=== PATIENT | male | born 1995 | race African-American/Black ===

== ENCOUNTER 2017-03-07 17:55 | Inpatient (IN) | payer OTHER ==
[~2017-03-07] VITALS: Ht 160 cm; Wt 62.1 kg
--- NOTE | ~2017-03-07 | HC ---
[facility] [place] [address] CONSULTATION Name: PURA CLARK Room #: 313-P [facility] IN M.R.#: [id number] Admission: 03/07/17 Attend Phys: Ricardo Shane MD Discharge: 03/18/17 Date of : 94 Report #: [id number] THIS REPORT FOR: //name// CC: BERTA physician/PCP Ricardo Banks The patient was admitted to the hospital on March 08 and discharged from the hospital on March 18. HISTORY OF PRESENT ILLNESS: The patient is a 21-year-old man, who came to the hospital with bilateral lower extremity numbness and inability to walk. The patient reported bilateral paralysis. The patient has been evaluated at [facility], as well as [facility] in the past. Reportedly, the symptoms go away a few days later. The patient has some injury when he played football in the school. Please refer to the admission H and P for details. HOSPITALIZATION COURSE: The patient was hospitalized at [facility]. Neurologist was consulted. The patient had extensive evaluation. He had MRI of the brain, as well as MRI of the spine. This was completely normal, and no abnormalities was detected. Conversion disorder was suspected, so Psychiatrist was consulted. Psychiatrist evaluated the patient about a week ago, and recommended further workup to rule out other etiologies. The patient had lumbar puncture yesterday, which was also unremarkable. Neurology strongly recommended re-consulting psychiatrist. In the meantime, the patient was seen and evaluated by inpatient rehabilitation, where patient will be transferred today. Of note, the patient also had urinary retention on admission, that was completely resolved. The patient's vital signs and blood work has remained unremarkable. Currently, the patient is medically stable to be transferred to the rehabilitation. ASSESSMENT AND PLAN: 1. Bilateral lumbar extremity weakness and numbness, conversion disorder is strongly suspected, as his evaluation was completely negative including MRI of the brain, MRI of the spine and LP. Reconsulting psychiatrist is recommended. 2. Urinary retention, resolved. DISCHARGE MEDICATIONS: Tylenol 650 mg every 6 hours as needed. [facility] [address] [place] [address] CONSULTATION Name: PURA CLARK Room #: 313-P [facility]#: [id number] Admission: 03/07/17 Attend Phys: Ricardo Shane MD Discharge: 03/18/17 Date of : 94 Report #: [id number] DISPOSITION: The patient is discharged to the inpatient rehabilitation. <ELECTRONICALLY SIGNED> By: Jad Phillips MD 03/18/17 1534 1244 1316 Jad Phillips MD /nt
--- NOTE | ~2017-03-07 | HC ---
[facility] [place] [address] CONSULTATION Name: PURA CLARK Room #: 313-P [facility] IN [facility].#: [id number] Admission: 03/07/17 Attend Phys: Ricardo Shane MD Discharge: Date of : 94 Report #: [id number] THIS REPORT FOR: //name// CC: [facility] physician/PCP Ricardo Banks DATE OF SERVICE: 03/09/2017 HISTORY OF PRESENT ILLNESS: The patient is a 21-year-old male who was admitted with episodic paraplegia. He has had at least 4 episodes. Apparently, he had pmumww-wu-pxdwap injury in 2012 and has had multiple episodes lasting for couple of days to a week when he will have the paraplegia, which will then resolve with therapy. 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 At this time, he had a similar event and also was noted to have presumed urinary retention and was catheterized in the emergency department. He has been seen by Neurology. MRI of the brain and spine were reviewed by the radiologist and Neurology and noted to be normal. Neurology has reviewed old records from [facility]. There is a suspicion for conversion disorder. The patient is now voiding, but does not have any movement of his lower extremities and has decreased sensation. We are seeing him in rehabilitation medicine consultation. PAST MEDICAL HISTORY: Well delineated above. Prior medical history also includes heel surgery and asthma. MEDICATIONS: Please see the full medication listing. ALLERGIES: No known drug allergies. HABITS: No history of tobacco or alcohol abuse. REVIEW OF SYSTEMS: No current complaints of chest pain, shortness of breath, abdominal discomfort. PHYSICAL EXAMINATION: GENERAL: A 21-year-old -J[place]ican male in no obvious distress. VITAL SIGNS: Last recorded temperature 97.4, pulse 52, respirations 18, blood pressure 108/54. NEUROLOGIC: He is alert, pleasant, oriented. He is a good historian. Facies are symmetric. He has full range of motion of both upper extremities with external strength. He is of slender build. Lower extremities, no volitional movement from the waist distal. DTRs were 2 at the knees, 1 at the ankles, no clonus. Sensation appeared decreased, bilateral lower extremities. Proprioception was tested and was absent in bilateral large toes. Functionally, he is standby assist and sit to supine and does have good sitting balance. [address] [address] CONSULTATION Name: EDUARDOPURA Room #: 313-P [facility] IN [facility]#: [id number] Admission: 03/07/17 Attend Phys: Ricardo Shane MD Discharge: Date of : 94 Report #: [id number] ASSESSMENT: A 21-year-old -Jamaican male with the following problem list: 1. Bilateral lower extremity paralysis. 2. Past history of episodic paraplegia. 3. Urinary retention initially, which has now resolved. 4. Family history of multiple sclerosis. PLAN: Thorough neurology documentation is well delineated. Therapy evaluations are underway. Insurance will need to be checked regarding rehab therapy options. We will be glad to follow along with you. <ELECTRONICALLY SIGNED> By: Oscar Hendrix MD 03/17/17 1350 1132 1214 Oscar Hendrix MD /nt
--- NOTE | ~2017-03-07 | EKG ---
[address] [place] [address] ELECTROCARDIOGRAM REPORT Name: DARIANA CLARKSHI Carrero Room #: 315-P ADM IN M.R.#: [id number] Admission: 03/07/17 Attend Phys: Ricardo Shane MD Discharge: Date of : 94 Report #: [id number] THIS REPORT FOR: //name// [facility] Test Date: 2017-03-12 Test Time: 13:21:38 Pat Name: PURA CLARK Department: Room: 315 P Gender: M Perianesthesia Rn: jaxon : 1995 Requested By: Devon Barone Order Number: [id number] MD: Iván Darling Measurements Intervals Nelson Rate: 54 P: 59 MO: 165 QRS: 62 QRSD: 97 T: 32 QT: 413 QTc: 392 Interpretive Statements Sinus rhythm Probable left ventricular hypertrophy ST elev, probable normal early repol pattern No previous ECG available for comparison Electronically Signed On 03-12-2017 14:19:19 CDT by Iván Darling [email or web address] <ELECTRONICALLY SIGNED> By: Iván Darling MD 03/12/17 1419 1321 1321 Iván Darling MD /RONDA
--- NOTE | ~2017-03-07 | HC ---
[facility] [place] [address] CONSULTATION Name: PURA CLARK Room #: 315-P ADM IN ..#: [id number] Admission: 03/07/17 Attend Phys: Ricardo Shane MD Discharge: Date of : 94 Report #: [id number] THIS REPORT FOR: //name// CC: [facility]ERT[facility] physician/PCP Ricardo Banks DATE OF SERVICE: 03/07/2017 HISTORY OF PRESENT ILLNESS: This is a 21-year-old male patient who was seen by me with pretty unusual history. He indicates that he had his first episode of paralysis of the lower extremities when he was 17. He indicated that the paralysis lasted about 2 weeks, but he was left with some residual paralysis. He did not have any bladder disturbances associated with that. After that, history becomes somewhat vague. Initially, he said he was admitted second time at [facility]. They told him to go to higher level of care and subsequently he went to [facility] because of that advice. Then, he changes his history and he indicated that he was admitted to [facility] between his second admission and his last admission to [facility], which was about 2 months ago. All the episodes were similar. He becomes completely paralyzed in the lower extremity. His upper extremity is not affected. At this time, he said he has not passed urine since yesterday, but previously he has not had any urinary problem before. He indicates he did have an MRI of the brain to look for MS and the best he knows he did not have any evidence of MS. He had no history of trauma, although he had some past history in that regard, which also he keeps changing. 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 He indicates that he can work there, but sometime gets tired and then he is allowed to sit. He denies any history of anxiety and depression, but I have no previous records in this patient and I have asked the emergency room physician to get those records. I carried out 14-point review of systems; except for these symptoms, it would appear it is unremarkable. PAST MEDICAL HISTORY: Positive for this kind of episode at least 4 times. FAMILY HISTORY: Negative for any hereditary paralysis. SOCIAL HISTORY: He denies the use of alcohol, tobacco, or drugs to me. PHYSICAL EXAMINATION: Indicate he is alert, he is responsive. His speech, concentration, fund of knowledge and memory is at his baseline. Cranial nerve examination 2-12 is unremarkable. He has normal strength, sensation, reflexes in both upper extremities. In the lower extremities, he says he cannot move at all. He indicates he has no position sense and no pinprick until about T 12 area. After that, sensation is completely intact. His reflexes are well [facility] [address] [place] [address] CONSULTATION Name: PURA CLARK Alise Room #: 315-P [facility] IN .R.#: [id number] Admission: 03/07/17 Attend Phys: Ricardo Shane MD Discharge: Date of : 94 Report #: [id number] elicited on both sides. It may be somewhat on the hyper side, but his plantars are mute on both sides. He does not have upgoing plantar and in fact during plantar examination, he does not move. There is no cardiac arrhythmia. His pulses are well felt in the lower extremities. He is reasonably well-developed individual who does not have any dysmorphic features of eyes, ears and face. He has no respiratory difficulties. Blood pressure is 115/79, respirations 16, pulse is 64, temperature is 98.7. LABORATORY DATA: His white count is 5.2. He had a stat MRI of the thoracic and lumbar spine done before I saw him and that was unremarkable. IMPRESSION: This is a complicated case and the diagnosis is not clear in this patient. I do not know whether this is an organic diagnosis or a functional diagnosis. We need all the records from the previous hospitalizations to review and then decide about the further management in this patient. It looks like he has been seen at multiple facilities and has been recommended to go [facility]. I discussed that aspect very frankly with him. I told him the limitation of our hospital and if at [facility] and [facility] he has been told to go to the higher level of care like [facility], then I told him very clearly this is not the hospital he should come in. I discussed the reason for that that we do not have neurological sophistication or neurosurgical sophistications even close to [facility], not to mention [facility] and [facility]. I discussed those limitations in great detail with this patient and recommended some other hospital which can provide him more sophisticated neuroscience care. However, for some reason, it looks like he wanted to get admitted here. If that is the case, I told the emergency room doctor to get his records from [facility] as well as from [facility] and [place] and we will review that. The first question which needs to be addressed in this patient is whether these symptoms are organic or functional. Organic diagnoses which are difficult to make but are sometime possible include dural AV malformation of the spine, which is very difficult diagnosis to make and may require angiogram of the spine, which is technically challenging. His MRI should be reviewed with the neuroradiologist to see if he has any abnormality which can suggest that or anything else. I do not know if they considered or did spinal tap in this patient and no record was available, and I think we need to await those records. Dr. Hamlin is coming to this hospital this week and I am regional vice president life sales just tonight. I will check this patient with her in the morning and ask her to get those records and then decide about the further management in this patient. More than 50 minutes of time was spent taking care of this patient today and majority of that time was spent counseling this patient and coordinating his care by talking [facility] [address] [place] [address] CONSULTATION Name: CLARKPURA Room #: 315-P ADM IN ..#: [id number] Admission: 03/07/17 Attend Phys: Ricardo Shane MD Discharge: Date of : 94 Report #: [id number] to multiple other healthcare professionals. Thank you very much for this referral. <ELECTRONICALLY SIGNED> By: Krystian Banks MD 03/08/17 0345 2317 0141 Krystian Banks MD /nt
[2017-03-07 17:56] VITALS: BP 122/73
[2017-03-07 18:47] LABS: HEMATOCRIT 44.8 % (42.0-52.0); HEMOGLOBIN 15.2 gm/dL (14.0-18.0); MCH 28.9 pg (26.0-34.0); MCV 85.1 fL (80.0-100.0); RBC 5.27 mil/uL (4.50-6.00); RDW 13.1 % (10.5-14.5); WBC 5.2 thou/uL (4.0-11.0)
[2017-03-07 18:50] LABS: CALCIUM 9.1 mg/dL (8.5-10.1); POTASSIUM 3.9 mmol/L (3.5-5.1)
[2017-03-07 18:57] LABS: TOTAL BILIRUBIN 0.4 mg/dL (<0.1-1.0); TOTAL PROTEIN 7.6 g/dL (6.4-8.2)
[2017-03-07 22:20] VITALS: BP 110/64
[2017-03-07 22:24] VITALS: BP 112/68
[2017-03-07 22:45] VITALS: BP 115/79
[2017-03-08 04:20] VITALS: BP 123/47
[2017-03-08 08:10] VITALS: BP 117/73
[2017-03-08 11:41] LABS: AMP/METHAMP Negative (Negative); BARBITURATES Negative (Negative); BENZODIAZEPINES Negative (Negative); COCAINE Negative (Negative); METHADONE Negative (Negative); OPIATES Negative (Negative); PCP Negative (Negative); THC Negative (Negative)
[2017-03-08 13:24] LABS: FOLIC ACID 11.1 ng/mL (8.6-58.9); TSH 0.357 uIU/mL (0.358-3.740)
[2017-03-08 16:09] VITALS: BP 123/78
[2017-03-08 20:00] VITALS: BP 122/71
[2017-03-09 04:00] VITALS: BP 106/56
[2017-03-09 08:00] VITALS: BP 108/54
[2017-03-09 16:00] VITALS: BP 124/55
[2017-03-09 20:45] VITALS: BP 117/69
[2017-03-10 04:30] VITALS: BP 103/60
[2017-03-10 07:31] VITALS: BP 106/70
[2017-03-10 16:09] VITALS: BP 104/58
[2017-03-10 21:30] VITALS: BP 121/67
[2017-03-11 04:30] VITALS: BP 109/59
[2017-03-11 07:17] VITALS: BP 101/51
[2017-03-11 16:01] VITALS: BP 114/63
[2017-03-11 20:00] VITALS: BP 118/69
[2017-03-12 04:00] VITALS: BP 95/51
[2017-03-12 08:00] VITALS: BP 109/60
[2017-03-12 14:27] LABS: ABSOLUTE NEUTROPHILS 2.3 thou/uL (1.4-8.2); EOSINOPHILS 3.6 % (0.0-3.0); HEMATOCRIT 43.8 % (42.0-52.0); HEMOGLOBIN 14.4 gm/dL (14.0-18.0); MANUAL DIFF NO; MCH 28.2 pg (26.0-34.0); MCV 85.5 fL (80.0-100.0); MONOCYTES 6.7 % (1.0-8.0); PLATELET COUNT 219 thou/uL (150-400); POLYS 56.7 % (36.0-66.0); RBC 5.12 mil/uL (4.50-6.00); RDW 12.8 % (10.5-14.5); WBC 4.1 thou/uL (4.0-11.0)
[2017-03-12 14:40] LABS: ANION GAP 5 mmol/L (7-16); BUN 11 mg/dL (7-18); CALCIUM 8.8 mg/dL (8.5-10.1); CHLORIDE 105 mmol/L (98-107); CO2 30 mmol/L (21-32); CREATININE 0.9 mg/dL (0.7-1.3); GLUCOSE 108 mg/dL (74-106); POTASSIUM 4.1 mmol/L (3.5-5.1); SODIUM 140 mmol/L (136-145); TROPONIN-I < 0.04 ng/mL (<0.04-0.07)
[2017-03-12 15:24] VITALS: BP 122/68
[2017-03-12 19:20] VITALS: BP 149/82
[2017-03-13 03:55] VITALS: BP 103/63
[2017-03-13 09:24] VITALS: BP 119/74
[2017-03-13 17:47] VITALS: BP 117/67
[2017-03-13 20:00] VITALS: BP 107/67
[2017-03-14 04:00] VITALS: BP 116/63
[2017-03-14 08:00] VITALS: BP 108/62
[2017-03-14 15:36] VITALS: BP 108/62
[2017-03-14 16:00] VITALS: BP 105/52
[2017-03-14 20:50] VITALS: BP 110/60
[2017-03-15 03:05] VITALS: BP 120/68
[2017-03-15 08:00] VITALS: BP 103/61
[2017-03-15 20:00] VITALS: BP 118/63
[2017-03-16 04:00] VITALS: BP 111/60
[2017-03-16 07:59] VITALS: BP 117/71
[2017-03-16 09:03] LABS: ABSOLUTE NEUTROPHILS 2.3 thou/uL (1.4-8.2); BASOPHILS 0.7 % (0.0-2.0); EOSINOPHILS 4.4 % (0.0-3.0); HEMATOCRIT 45.2 % (42.0-52.0); HEMOGLOBIN 15.3 gm/dL (14.0-18.0); LYMPHOCYTES 40.6 % (24.0-44.0); MCH 28.9 pg (26.0-34.0); MCHC 33.9 g/dL (28.0-37.0); MCV 85.5 fL (80.0-100.0); PLATELET COUNT 220 thou/uL (150-400); POLYS 46.3 % (36.0-66.0); RBC 5.28 mil/uL (4.50-6.00); WBC 4.9 thou/uL (4.0-11.0)
[2017-03-16 09:05] LABS: MANUAL DIFF NO
[2017-03-16 09:18] LABS: CALCIUM 9.1 mg/dL (8.5-10.1); CREATININE 1.1 mg/dL (0.7-1.3); POTASSIUM 4.5 mmol/L (3.5-5.1)
[2017-03-16 15:33] VITALS: BP 111/64
[2017-03-16 19:36] VITALS: BP 128/74
[2017-03-17 04:19] VITALS: BP 124/69
[2017-03-17 09:58] VITALS: BP 112/72
[2017-03-17 11:26] LABS: CSF CLARITY CLEAR; CSF COLOR COLORLESS; NUMBER OF TUBES 4; VOLUME 21 ml
[2017-03-17 11:32] LABS: CSF GLUCOSE 62 mg/dL (40-70); CSF PROTEIN 24 mg/dL (15-45)
[2017-03-17 11:38] LABS: CSF WBC 1 /mm3 (0-10); MANUAL DIFF NO
[2017-03-17 15:26] VITALS: BP 120/63
[2017-03-17 20:00] VITALS: BP 113/56
[2017-03-18 04:00] VITALS: BP 94/54
[2017-03-18 08:05] VITALS: BP 101/62
[2017-03-18 12:57] VITALS: BP 108/62
[2017-03-21 13:11] LABS: CSF VDRL Non Reactive (Non Rea:<1:1)
== END 2017-03-18 14:02 | DRG 53 ==
LOC: ER 17:55 → 3N 21:13 → EROBS 21:13 → 3N 22:26
PROVIDERS: Family Medicine; Physician Assistant; Psychiatry & Neurology Neurology
PROC: 009U3ZX Drainage of Spinal Canal, Percutaneous Approach, Diagnostic (ICD-10-PCS; principal; 2017-03-08)
PROC: B01B1ZZ Fluoroscopy of Spinal Cord using Low Osmolar Contrast (ICD-10-PCS; principal; 2017-03-08)
DX: G82.20 Paraplegia, unspecified (principal); F44.9 Dissociative and conversion disorder, unspecified; G83.10 Monoplegia of lower limb affecting unspecified side; R33.9 Retention of urine, unspecified; F06.8 Other specified mental disorders due to known physiological condition; J45.909 Unspecified asthma, uncomplicated
CPT/HCPCS: 10094

== ENCOUNTER 2017-03-18 14:19 | Inpatient (IN) | payer OTHER ==
[~2017-03-18] VITALS: Ht 165.1 cm; Wt 65.8 kg
--- NOTE | ~2017-03-18 | PLAN ---
[facility] [place] [address] REHAB UNIT PLAN OF CARE Name: PURA CLARK Room #: 506-1 ADM IN M.R.#: [id number] Admission: 03/18/17 Attend Phys: Oscar Hendrix MD Discharge: Date of : 94 Report #: [id number] THIS REPORT FOR: //name// CC: Oscar Hendrix [facility] physician/PCP PROGRESS NOTE/OVERALL PLAN OF CARE The patient is seen back in followup today. Nursing notes indicate that he had some right-sided chest discomfort over the weekend, worsened with aspiration. Orders were received for Tums and Protonix. When I saw him this morning, he did not complain of any chest pain. No shortness of breath, no abdominal discomfort. PHYSICAL EXAMINATION: GENERAL: He was in good spirits. He was alert. VITAL SIGNS: Temperature 97.8, pulse 55, respirations 20, blood pressure 110/63. CHEST: Sounded clear to auscultation. CARDIAC: Regular rate and rhythm. ABDOMEN: Bowel sounds positive, nontender. GENITOURINARY AND RECTAL: Deferred. LOWER EXTREMITIES: He actually moved the legs when I came in as he was repositioning himself in bed. This involved bilateral hip and knee flexion. Lower extremity tone appears normal. There is no focal calf swelling, no palpable cord, negative Homans. No distal lower extremity swelling. ASSESSMENT: 1. Bilateral lower extremity paraparesis. 2. Past history of episodic paraplegia. 3. Initially urinary retention, which resolved. 4. Family history of multiple sclerosis. PLAN: With the chest discomfort which resolved over the weekend, I elected to send him down for bilateral lower extremity venous Doppler studies. He is moving his lower extremities, but the studies are ordered to rule out any deep vein thrombosis. The studies are back and are negative. He has SCDs ordered, Lovenox was started and he is to continue in his therapy program. As far as overall plan of care, this is based on the preadmission screen, post-admission physician evaluation and information garnered from therapy assessments. 1. Estimated length of stay is probably at least 10 days to 2 weeks and likely longer if needed. 2. Medical prognosis is reasonably good. 3. Anticipated interventions includes the interdisciplinary acute inpatient rehabilitation program with the goal of returning back to the home setting. 4. Anticipated functional outcomes would be for him to become modified independent ideally at a walker level if he can progress to that point. Would [address] [address] REHAB UNIT PLAN OF CARE Name: PURA CLARK Room #: 506-[id number] Admission: 03/18/17 Attend Phys: Oscar Hendrix MD Discharge: Date of : 94 Report #: [id number] like to be as independent and functionally ambulatory as possible. Goal is also to be independent with ADLs. 5. Discharge destination is back to the home setting. 6. Expected therapy by discipline includes PT, OT 1-1/2 hours per day each 5 days a week throughout the duration of the acute inpatient rehabilitation stay. By: 1124 1219 Oscar Hendrix MD /nt
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
[2017-03-18 14:30] VITALS: BP 119/58
[2017-03-19 04:55] LABS: HEMATOCRIT 42.7 % (42.0-52.0); HEMOGLOBIN 14.2 gm/dL (14.0-18.0); MCH 28.5 pg (26.0-34.0); MCHC 33.2 g/dL (28.0-37.0); MCV 85.7 fL (80.0-100.0); RBC 4.99 mil/uL (4.50-6.00); RDW 12.6 % (10.5-14.5)
[2017-03-19 04:59] LABS: CALCIUM 8.9 mg/dL (8.5-10.1)
[2017-03-19 06:01] VITALS: BP 122/61
[2017-03-19 14:45] VITALS: BP 119/67
[2017-03-20 05:09] VITALS: BP 119/82
[2017-03-20 15:50] VITALS: BP 122/55
[2017-03-21 05:13] VITALS: BP 110/63
[2017-03-21 16:00] VITALS: BP 103/55
[2017-03-22 05:57] LABS: ABSOLUTE NEUTROPHILS 3.1 thou/uL (1.4-8.2); BASOPHILS 0.9 % (0.0-2.0); EOSINOPHILS 3.4 % (0.0-3.0); HEMATOCRIT 44.7 % (42.0-52.0); LYMPHOCYTES 35.2 % (24.0-44.0); MCH 28.4 pg (26.0-34.0); MCHC 33.5 g/dL (28.0-37.0); MCV 84.7 fL (80.0-100.0); MONOCYTES 6.7 % (1.0-8.0); PLATELET COUNT 201 thou/uL (150-400); POLYS 53.8 % (36.0-66.0); RBC 5.27 mil/uL (4.50-6.00); WBC 5.8 thou/uL (4.0-11.0)
[2017-03-22 05:58] LABS: MANUAL DIFF NO
[2017-03-22 06:01] VITALS: BP 106/68
[2017-03-22 06:12] LABS: ALBUMIN 3.6 g/dL (3.4-5.0); CALCIUM 9.2 mg/dL (8.5-10.1); MAGNESIUM 1.7 mg/dL (1.8-2.4); TOTAL BILIRUBIN 0.4 mg/dL (<0.1-1.0); TOTAL PROTEIN 7.2 g/dL (6.4-8.2)
[2017-03-23 05:43] VITALS: BP 111/61
[2017-03-23 07:55] VITALS: BP 104/58
[2017-03-23 08:00] VITALS: BP 104/58
[2017-03-23 14:40] VITALS: BP 104/58
== END 2017-03-23 14:57 | disposition home or self-care (01) | DRG 53 ==
PROVIDERS: Nurse Practitioner; Physical Medicine & Rehabilitation
DX: G82.20 Paraplegia, unspecified (principal); F44.4 Conversion disorder with motor symptom or deficit; J45.909 Unspecified asthma, uncomplicated; R33.9 Retention of urine, unspecified; Z84.89 Family history of other specified conditions
CPT/HCPCS: 10112